=== PATIENT | male | born 1975 | race Caucasian/White ===

== ENCOUNTER 2024-03-31 11:48 | Emergency (ER) | payer MEDICAID ==
[~2024-03-31] VITALS: Ht 167.6 cm; Wt 50.0 kg
[~2024-03-31 11:48] MED LIST: POTA-205 MT
[2024-03-31 11:57] VITALS: O2SAT 100
[2024-03-31] MEDS: ACETAMINOPHEN 325MG TABLET PO ONE (13:33)
[2024-03-31] MEDS ORDERED: IBUP-1523 MT (14:36)
[2024-03-31] MEDS ORDERED: TOPUD MT (14:36)
[2024-03-31 15:04] VITALS: BP 108/78; PULSE 88; RESP 18; TEMP 37.05852; O2SAT 98
== END 2024-03-31 15:05 | disposition home or self-care (01) ==
LOC: ER 11:48
DX: S20.211A Contusion of right front wall of thorax, initial encounter (principal); W18.39XA Other fall on same level, initial encounter; Y93.89 Activity, other specified; Y92.89 Other specified places as the place of occurrence of the external cause; Y99.8 Other external cause status
CPT/HCPCS: 71045; 71111; 93005; 99284